=== PATIENT | male | born 1995 | race Caucasian/White ===

== ENCOUNTER 2020-11-18 09:50 | Emergency (ER) | payer OTHER, SELFPAY ==
--- NOTE | ~2020-11-18 | XR_ITS ---
EXAMINATION: XR knee RT min 4V DATE: 11/18/2020 10:23 INDICATION: Right knee injury. TECHNIQUE: 4 views of right knee were obtained. COMPARISON: None. FINDINGS: Bone alignment is normal. No fracture. Joint spaces are well maintained. There is a moderat e-sized knee joint effusion. IMPRESSION: 1. Moderate-sized right knee joint effusion. Reviewed, dictated and finalized at location A.
[2020-11-18 09:58] VITALS: BP 146/89; PULSE 98; RESP 15; TEMP 36.4; O2SAT 100
[2020-11-18] MEDS: IBUPROFEN 600 MG TABLET PO (10:50)
--- NOTE | 2020-11-18 10:50 | ED.LOWEXIN ---
HPI - Extremity Injury (Lower) General Chief Complaint: Extremity Injury, Lower Stated Complaint: Right knee injury Time Seen by Provider: 11/18/20 10:39 Source: patient Mode of arrival: wheelchair Limitations: no limitations History of Present Illness HPI Narrative: This is a 25-year-old male that presents the emergency department for right knee injury sustained last night. Reports he was running and try to stop quickly. Reports this caused his knee to buckle laterally. Reports since he has had pain on the lower aspect and lateral aspect of the knee. Worse with movement and relieved with rest. He has not been able to bear weight on the leg. Denies other injuries, or numbness. Related Data Allergies Allergy/AdvReac Type Severity Reaction Status Date / Time No Known Allergies Allergy Unverified 05/25/17 11:41 Review of Systems Review of Systems: Narrative: CONSTITUTIONAL: Denies fever MUSCULOSKELETAL: Reports joint pain, and myalgia. NEUROLOGIC: Denies numbness All systems reviewed & are unremarkable except as noted in HPI and below PMFSH Past Medical History Medical History (Updated 11/18/20 @ 10:54 by Janell Tsang PA-C) No active medical problems Social History Social History (Updated 11/18/20 @ 10:51 by Janell Tsang PA-C) Substance use: never Gender identity (if verbalized by the patient): Male Exam Narrative: Exam Narrative: GENERAL: Well-appearing, well-nourished, and in no acute distress. HEAD: Normocephalic, atraumatic. EYES: EOMI. EXTREMITIES: Normal range of motion, except decreased active range of motion in the right knee. Mild edema about the right knee anteriorly. Tender to palpation of the lateral joint line. Normal DP pulse. Normal sensation SKIN: Warm, dry, no rash. NEURO: No focal deficits. Alert and oriented x3. PSYCH: Normal mood and affect Course Vital Signs Vital signs: Vital Signs Temperature 97.5 F L 11/18/20 09:58 Pulse Rate 98 11/18/20 09:58 Respiratory Rate 15 11/18/20 09:58 Blood Pressure 146/89 H 11/18/20 09:58 Pulse Oximetry 100 11/18/20 09:58 Temperature 97.5 F L 11/18/20 09:58 Pulse Rate 98 11/18/20 09:58 Respiratory Rate 15 11/18/20 09:58 Blood Pressure 146/89 H 11/18/20 09:58 Pulse Oximetry 100 11/18/20 09:58 MDM - Extremity Injury (Lower) MDM Narrative Medical decision making narrative: Patient presents the emergency department for right knee injury sustained last night. Right knee x-ray shows a moderate sized joint effusion. Patient updated on case findings. Instructed on care of knee sprain. Will be given orthopedics for follow-up. He was given warnings to return to the ER Imaging Data Radiologist's impression: ITS Impressions Knee X-Ray 11/18/20 10:23 IMPRESSION: 1. Moderate-sized right knee joint effusion. Critical Care Time Critical Care Time Critical Care Time: No Discharge Plan Discharge Clinical Impression: Right knee sprain Qualifiers: Encounter type: initial encounter Involved ligament of knee: unspecified ligament Qualified Code(s): S83.91XA - Sprain of unspecified site of right knee, initial encounter Patient Disposition: Home, Self-Care Condition: Stable Instructions: Knee Sprain (ED) Additional Instructions: Return to the emergency department if you experience fever, redness and swelling of your leg, numbness, or any other symptoms that are concerning to you Wear knee immobilizer and use crutches. No weight on the affected leg. Ice and elevate extremity. Pain medication as needed and directed. Follow up with orthopedics for further care. Follow-up/Referrals: Guanako Rodríguez MD [Physician] - 1 Week PHYSICIAN,[employer] [Primary Care Provider] -
== END 2020-11-18 11:03 | disposition home or self-care (01) ==
PROVIDERS: Emergency Provider Emergency Medicine
DX: S83.91XA Sprain of unspecified site of right knee, initial encounter (principal); X50.0XXA Overexertion from strenuous movement or load, initial encounter
CPT/HCPCS: 73564; 99283; A9270

== ENCOUNTER → 2020-11-28 12:59 | Outpatient (CLI) | payer OTHER, SELFPAY ==
--- NOTE | ~2020-11-28 | MR_ITS ---
EXAMINATION: MR knee RT wo con DATE: 11/28/2020 13:46 INDICATION: Generalized right knee pain, swelling and limited range of motion post kickball injury 2 weeks prior TECHNIQUE: Magnetic resonance imaging (MRI) of the right knee was performed without intravenous contr ast. Sequences included coronal PD-weighted FSE, coronal PD-weighted FS FSE, sagittal T2-weighted FS E, sagittal PD-weighted FS FSE and axial PD weighted fat saturated FSE. COMPARISON: Right knee radiographs dated 11/18/2020 FINDINGS: Medial compartment: Medial meniscus is normal. Articular cartilage is normal. Lateral compartment: Lateral meniscus is normal. Articular cartilage is normal. Patellofemoral compartment: Partial-thickness chondral fissuring involving less than 50% the cartilage thickness at the central a spect of the medial and lateral patellar facets. Trochlear cartilage is normal. Ligaments and tendons: Posterior cruciate ligament is normal. Likely complete tear at the central aspect of the anterior cru ciate ligament. The medial collateral ligament and fibular collateral ligament complex are normal. Th e extensor mechanism is normal. The visualized medial and lateral hamstring tendons as well as the il iotibial band are normal. Fluid: Small to moderate sized right knee joint effusion. No loose osteochondral bodies identified. Small Ba ker's cyst. Osseous/other: Prominent marrow edema surrounding a linear subarticular impaction fracture line at the lateral sulcu s of the lateral femoral condyle. Additional marrow edema without fracture lines consistent with bone contusions at the posterior margins of the medial and lateral tibial plateaus. This could be consist ent with an anterior tibial subluxation injury occurring in conjunction with the anterior cruciate li gament tear. Additional bone contusion at the proximal tip of the fibula. No pathologic marrow replac ing process. IMPRESSION: 1. Anterior tibial subluxation injury pattern with likely complete anterior cruciate ligament tear, b one contusions along the posterior aspect of the medial and lateral tibial plateaus and subarticular impaction fracture at the lateral sulcus of the lateral femoral condyle. 2. Small to moderate right knee joint effusion. 3. Moderate grade chondromalacia with shallow partial-thickness chondral fissuring at the medial and lateral patellar facets. Reviewed, dictated and finalized at location A. IMPRESSION: 1. Anterior tibial subluxation injury pattern with likely complete anterior cru ciate ligament tear, bone contusions along the posterior aspect of the medial a nd lateral tibial plateaus and subarticular impaction fracture at the lateral s ulcus of the lateral femoral condyle. 2. Small to moderate right knee joint effusion. 3. Moderate grade chondromalacia with shallow partial-thickness chondral fissur ing at the medial and lateral patellar facets.
== END ==
PROVIDERS: Visit Provider Orthopaedic Surgery
DX: S89.91XA Unspecified injury of right lower leg, initial encounter (principal); X58.XXXA Exposure to other specified factors, initial encounter; M25.461 Effusion, right knee
CPT/HCPCS: 73721